=== PATIENT | female | born 1985 ===

== ENCOUNTER 2024-11-10 10:02 | Outpatient (AMB) | payer OTHER, SELFPAY ==
--- NOTE | 2024-11-10 10:05 | A.OFFVIS_ITS ---
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 Patient was referred by Deepti Bautista MD of [facility] on 08/10/24. Patient was seen by [facility] ER on 07/08/24 for her pushing a heavy object onto a shelf at work. At that visit patient was given NSAIDs and an X ray of the Lumbar Spine was done, she was also referred to Physical Therapy at [facility]. At today's visit she states that the upper and lower back pain radiates down both legs. She states that physical therapy did not help. No numbness or tingling to report. Armored Service Technician Required: Yes Armored Service Technician Services: Armored Service Technician Present Armored Service Technician Name: Antolin Mejia [phone] Allergies No Known Allergies Allergy (Verified 11/10/24 10:16) Medication List - Last Reconciled 11/10/24 by Mariza Avery MD cyclobenzaprine mg PO fluticasone propionate 50 mcg/actuation intranasal DAILY guaifenesin (Chest Congestion Relief) 400 mg PO Q4H PRN levothyroxine 137 mcg PO DAILY naproxen 500 mg PO BID PRN HPI Comments Details: Reviewed records from [facility]. Work injury around July 2024. Has undergone physical therapy. ER visit 07/08/2024, said normal x-rays, recommended muscle relaxers and NSAIDs. X-ray report: No lumbar spine fracture or traumatic subluxation, disc degeneration changes at L3-4. Prescribed by PCP with Flexeril. Lower back pain, across the back, then goes down both buttocks. Does not radiates lower than buttocks. Denies numbness. Denies weakness. Pain does not wrap around the stomach. No bladder/bowel changes. [facility] Medical History (Updated 11/10/24 @ 10:28 by Mariza Avery MD) Thyroid nodule (~08/26/01) Social History (Updated 11/09/24 @ 15:03 by Blanca Valentine) Current occupational status: employed Current occupation: [employer] Review of Systems Const All systems reviewed & are unremarkable except as noted in HPI and below Physical Exam Exam Exam: Constitutional: Patient appears to be in no acute distress, well nourished and well developed. Patient was appropriately conversant and oriented. Good historian. MSK: No specific abnormalities found on inspection of the spine and all extremities. No pain with palpation over the lumbar area. Most of her tenderness or on SI joints and right piriformis. Lumbar ROM was limited with extension due to pain. Bilateral hip, knee and ankle ROM WNL. No ligamentous laxity or crepitance. No increased effusion. Straight-leg raising test negative. FABERE test positive lower back pain bilateral. Gillet test showed stiffness in right SI joint. Strength is 5/5 in all muscle groups tested. No increased tone noted. Neurological: Neurologic examination of the upper and lower extremities was nonfocal with intact sensation, muscle stretch reflexes and without focal motor deficits . Kang?s negative bilaterally. Babinski was down going bilaterally. Clonus was negative. Gait is non-antalgic without loss of balance. Vital Signs: BMI result Body Mass Index 18.9 Results Reviewed Results Reviewed: xray as above. I reviewed records from the following: [facility]. Will obtain notes from [facility] and [facility]. Assessment & Plan Assessment & Plan (1) Sacroiliac joint dysfunction of both sides: Code(s): M53.3 - Sacrococcygeal disorders, not elsewhere classified Category: Medical (2) Piriformis syndrome of right side: Code(s): G57.01 - Lesion of sciatic nerve, right lower limb Category: Medical Plan We talked about treatment options for SI joint dysfunction. Discussed how SI joint pathology is different/unique from usual back pain. SI joint injection could help with pain now but emphasized that she will continue home exercises and stretching to prevent further recurrence or re-injury. Explained to patient that such injections are done under fluoroscopy under Pain Management department. She is eager to proceed. Referral for the injection. In the meantime, we are also getting records from [facility] and [facility]. Continue home exercises taught by PT. Assessment and plan discussed with patient, and patient was agreeable. All questions were answered thoroughly. Follow up after injection. Mariza Avery MD, CELESTE Board Certified, [place] Board of Physical Medicine and Rehabilitation (ABPMR) Board Certified, [place] Board of Electrodiagnostic Medicine (ABEM) Orders: Referrals Pain Management Referral G57.01 - Lesion of sciatic nerve, right lower limb, M53.3 - Sacrococcygeal disorders, not elsewhere classified Coding Level of Care Code New Pt Level 4 (05161) Diagnoses Sacroiliac joint dysfunction of both sides M53.3 Piriformis syndrome of right side G57.01
[2024-11-10 10:16] VITALS: BMI 18.9
--- OUTSIDE RECORDS SUMMARY | 2024-11-10 10:19 | XMS_ITS | Clinical Summary ---
Author Organization [facility] Address [address] [place] [address] Phone Care Team Providers Care Access Registrar Name Role Phone Kay Osorio Primary Care Provider Allergies No known active allergies Medications methocarbamoL (ROBAXIN) 750 mg tablet Take 1 tablet (750 mg total) by mouth 4 (four) times a day for 5 days. 20 each 07/08/2024 Active Active Problems No known active problems Surgical History Surgery Date Site/Laterality Comments TUBAL LIGATION Social History Tobacco Use Types Packs/Day Years Used Date Smoking Tobacco: Unknown Tobacco Cessation:Counseling Given: Not Answered Comments Unknown Sex and Gender Information Value Date Recorded Sex Assigned at Female 07/08/2024 11:31 AM EDT Legal Sex Female 5:29 AM EST Gender Identity Female 07/08/2024 11:31 AM EDT Sexual Orientation Choose not to disclose 2024 11:31 AM EDT Obstetrics History Last Filed Vital Signs Vital Sign Reading Time Taken Comments Blood Pressure 121/68 07/08/2024 10:21 AM EDT Pulse 65 07/08/2024 10:21 AM EDT Temperature 36.6 C (97.9 F) 07/08/2024 10:21 AM EDT Respiratory Rate 19 07/08/2024 10:21 AM EDT Oxygen Saturation 98% 07/08/2024 10:21 AM EDT Inhaled Oxygen Concentration - - Weight 81.6 kg (180 lb) 07/08/2024 10:21 AM EDT Height 167.6 cm (5' 6 ) 07/08/2024 10:21 AM EDT Body Mass Index 29.05 07/08/2024 10:21 AM EDT Plan of Treatment Health Maintenance Due Date Last Done Comments Hepatitis B Vaccines (1 of 3 - 19+ 3-dose series) 01/26/2003 Cervical Cancer Screening: Pap Smear 01/26/2005 Hepatitis C Screening 03/22/2022 Social Influencers of Health Screening 03/22/2022 COVID-19 Vaccine (3 - 2023- season) 2023 08/15/2020, 07/17/2020 HPV Vaccines (2 - 3-dose SCDM series) 02/11/2024 01/14/2024 Depression Screening 04/19/2024 Influenza Vaccine (#1) 2024 03/25/2020 Cholesterol Screening (Lipid Panel) 03/25/2025 03/25/2020, 03/25/2020, 03/25/2020, Additional history exists Breast Cancer Screening 01/26/2026 2024 DTaP,Tdap,and Td Vaccines (2 - Td or Tdap) 05/09/2030 05/09/2020 HIV Screening Completed 03/25/2020 HIB Vaccines Aged Out No longer eligi ble based on patient's age to complete this topic Hepatitis A Vaccines Aged Out No long er eligible based on patient's age to complete this topic IPV Vaccines Aged Out No longer eligi ble based on patient's age to complete this topic MMR Vaccines Aged Out No longer eligi ble based on patient's age to complete this topic Meningococcal ACWY Vaccine Aged Out N o longer eligible based on patient's age to complete this topic Meningococcal B Vaccine Aged Out No l onger eligible based on patient's age to complete this topic Pneumococcal Vaccine: Pediatrics (0 to 5 Years) and At-Risk Patients (6 to 49 Years) Aged Out No longer eligible based on patient's age to complete this topic RSV Immunization Patients Under 20 months Aged Out No longer eligible based on patient's age to complete this topic Varicella Vaccines Aged Out No longer eligible based on patient's age to complete this topic Insurance GENERIC MEDICAID - [place] Care Teams Access Registrar Relationship Specialty Start Date End Date Kay Osorio PA [address] [place] [address] PCP - General 07/08/24
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
--- OUTSIDE RECORDS SUMMARY | 2024-11-10 10:19 | XMS_ITS | Encounter Summary ---
Author Organization [employer] Address [address] [address] [place] [address] Care Team Providers Care Business Information Analyst Name Role Phone Unavailable Primary Care Provider Unavailabl e Encounter Details Date Type Department Care Team (Late st Contact Info) Description 11/07/2024 Population Health Risk Score [facility] ([facility]) Department [address] [facility] [address] [place] [address] Provider, Population Health Generic Social History Tobacco Use Types Packs/Day Years Used Date Smoking Tobacco: Never Assessed Comments Unknown Sex and Gender Information Value Date Recorded Sex Assigned at Female 02/16/2022 10:30 AM EDT Legal Sex Female 10:30 AM EDT Gender Identity Not on file Sexual Orientation Not on file documented as of this encounter Plan of Treatment Not on file documented as of this encounter Visit Diagnoses Not on filedocumented in this encounter
== END 2024-11-10 11:01 | disposition home or self-care (01) ==
LOC: HO.HOS 10:03
PROVIDERS: Visit Provider Physical Medicine & Rehabilitation
DX: M53.3 Sacrococcygeal disorders, not elsewhere classified (principal); G57.01 Lesion of sciatic nerve, right lower limb
CPT/HCPCS: 99204

== ENCOUNTER → 2024-11-10 10:02 | Outpatient (BNVA) | payer OTHER, MEDICAID, SELFPAY | PROVIDERS: Visit Provider Physical Medicine & Rehabilitation | DX: M53.3 Sacrococcygeal disorders, not elsewhere classified (principal); G57.01 Lesion of sciatic nerve, right lower limb | CPT/HCPCS: 99202 ==